=== PATIENT | female | born 1955 | race Two or more races ===

== ENCOUNTER → 2025-08-02 | Emergency (ER) | payer OTHER ==
[~2025-08-02] VITALS: Ht 157.5 cm; Wt 65.8 kg
[~2025-08-02] MED LIST: 8HR ARTHRITIS650 M1 PO; ACETAMINOPHEN 500 MG GEL..CAP PO ONE; ATORVASTATIN CA20 MG PO; COZAAR100 MG PO; DEXAMETHASONE SODIUM PHOSPHATE 4 MG/ML VIAL IM ONE; DEXAMETHASONE SODIUM PHOSPHATE 4 MG/ML VIAL ONE; KETOROLAC TROMETHAMINE 60 MG VIAL IM ONE; NORFLEX100MG PO; ORPHENADRINE CITRATE 30 MG/ML AMPUL IM ONE; ORPHENADRINE CITRATE 30 MG/ML AMPUL ONE; PEPCID AC20 MG PO
[2025-08-02 17:42] LABS: BASO % 0.5 % (0.1-1.2); EOS # 0.37 (0.04-0.54); EOS % 3.2 % (0.7-7.0); LYMPH # 3.59 (1.18-3.74); LYMPH % 31.5 % (19.3-53.1); MEAN PLATELET VOLUME 10.30 fl (9.4-12.4); MONO # 0.64 (0.24-0.82); MONO % 5.6 % (4.7-12.5); NEUT # 6.70 (1.56-6.13); NEUT % 58.9 % (34.0-71.1); RED CELL DISTRIBUTION WIDTH 15.0 % (11.6-14.4)
[2025-08-02 18:12] LABS: ALT/SGPT 15.0 U/L (12-78); AST/SGOT 10.0 U/L (15-37); BILIRUBIN TOTAL 0.5 mg/dL (0.3-1.2); BUN CREA RATIO 12.0 (7.0-25.0); CREATININE SERUM 0.92 mg/dL (0.55-1.02); GFR 60.18; GLOBULINA 3.9 G/DL (2.4-3.5); GLUCOSE FASTING 95.0 mg/dL (65-100); OSMOLALITY SERUM 280.0 MOSM/KG (275-295); PHOSPHOKINASE CREATININE 62.0 U/L (26-192)
== END | disposition home or self-care (01) ==
LOC: ER 14:43
PROVIDERS: General Practice
DX: M79.652 Pain in left thigh (principal); I10 Essential (primary) hypertension
CPT/HCPCS: 36415; 73502; 73551; 96372; 99283; J1100; J1885; J2360